=== PATIENT | male | born 1970 | race Two or more races ===

== ENCOUNTER 2025-02-03 06:33 | Inpatient (IN) | payer OTHER ==
[2025-02-03] VITALS (23 sets, daily range): BP systolic 97–154; BP diastolic 59–91; PULSE 54–86; RESP 12–20; TEMP 97.6–98.3; O2SAT 93–100
[~2025-02-03] VITALS: Ht 172.7 cm; Wt 86.3 kg
[2025-02-03] MEDS: ceFAZolin 2gm in dextrose, iso 50 ML IV ONE (05:30)
[2025-02-03] MEDS: tranexamic acid 1gm/0.7% sal. 100 ML IV ONE (05:30)
[~2025-02-03 06:33] MED LIST: UNABLE TO OBTAIN
[2025-02-03] MEDS ORDERED: SUMA50TA PO (07:01)
[2025-02-03] MEDS ORDERED: ACET325T55 PO (07:01)
[2025-02-03] MEDS ORDERED: DICLOFENAC 1% GEL TOP (07:01)
[2025-02-03] MEDS ORDERED: DULO-31 PO ×2 (07:01)
[2025-02-03] MEDS ORDERED: LIDOCAINE 4% TOP (07:01)
[2025-02-03] MEDS: famotidine 20mg tablet PO ONE (07:04)
[2025-02-03] MEDS ORDERED: METO50TA7 PO (07:05)
[2025-02-03] MEDS ORDERED: MAGN400T29 PO (07:05)
[2025-02-03] MEDS: ringers solution, lacted 1,000 ML IV SCH ×2 (07:05→14:08)
[2025-02-03] MEDS: VANCOMYCIN/H2O 1.5g/300mL PB 300 ML IV ONE (07:05)
[2025-02-03] MEDS ORDERED: vancomycin 1,000mg inj ONE (08:13)
[2025-02-03] MEDS ORDERED: sevoflurane 250ml liquid IH ONE (08:40)
[2025-02-03] MEDS ORDERED: fentaNYL/PF 50MCG/1 ML 2ML syringe ONE (08:43)
[2025-02-03] MEDS ORDERED: MIDAZolam 1 MG/ML 5ML VIAL ONE (08:43)
[2025-02-03] MEDS ORDERED: propofol inj 20 ML IV ONE (08:49)
[2025-02-03] MEDS ORDERED: LIDOcaine 1%/PF 5ML 10 MG/ML VIAL ONE (08:49)
[2025-02-03] MEDS ORDERED: dexamethasone sod phosphate 4mg/ml inj. ONE (09:31)
[2025-02-03] MEDS ORDERED: ROPIVAcaine 0.5% (5mg/ml) 30ml vial ONE (09:31)
[2025-02-03] MEDS ORDERED: rocuronium 10mg/ml inj IV ONE (09:31)
[2025-02-03] MEDS ORDERED: diphenhydrAMINE 50 mg/ml inj ONE (09:31)
[2025-02-03] MEDS ORDERED: ePHEDrine 50MG/ML INJ. ONE (09:39)
[2025-02-03] MEDS ORDERED: labetalol 20mg/4ml (5mg/ml) syringe IV PRN (10:40)
[2025-02-03] MEDS ORDERED: enalaprilat 1.25mg/ml 2ml vial IV PRN (10:40)
[2025-02-03] MEDS ORDERED: ROPIVAcaine 0.2% (10 MG/5 ML) BOLUS INJECTION INTERSCALE PRN (10:40)
[2025-02-03] MEDS ORDERED: morphine 4 MG/ML inj SYRINge IV PRN (10:40)
[2025-02-03] MEDS ORDERED: morphine 2 MG/ML inj. syringe IV PRN (10:40)
[2025-02-03] MEDS ORDERED: proCHLORperazine 10 MG/2 ml inj IV PRN (10:40)
[2025-02-03] MEDS ORDERED: ondansetron/PF 4mg/2ml inj IV PRN ×2 (10:40→12:35)
[2025-02-03] MEDS ORDERED: meperidine/PF 25mg/ml syringe IV PRN ×3 (10:40)
--- NOTE | 2025-02-03 10:41 | ANESTHESIA RECORDS ---
Nerve Block Providers to CC ~ Diagnosis: Nerve Block requested by: MERRITT VICTORIA MD Neuraxial/Peripheral Nerve Block requested for Post-operative analgesia by Physician above DIAGNOSIS: Post-operative pain. (Body Area) Shoulder: [ Right ] Arm: [ ] Hand: [ ] Hip: [ ] Knee: [ ] Ankle: [ ] Foot: [ ] Leg: [ ] Abdomen: [ ] Other: [ ] Post-operative pain expected to be/is inadequately managed by oral or IV medicines. Regional anesthetic expected to facilitate rehabilitation and/or discharge from facility. Other:[ ] Procedure Performed: Interscalene: Right Time out Done?: Yes Time of Time out: 08:47 Procedure Details: PROCEDURE DETAILS: Risks, benefits and alternatives explained Informed consent obtained, and patient wishes to proceed Conscious sedation with indicated monitors Patient positioned, pertinent anatomy defined, sterile technique used Needle used: [ ] 3 1/8 inch Stimuplex Ultra 22ga [ ] 4 inch Stimuplex Ultra 20ga [ ] 6 inch Stimuplex Ultra 20ga [ ] 6 inch, Quikbloc over the needle catheter set 20ga [ x] 4 inch Quikbloc over the needle catheter set 20ga [ ]Other: [ ] Loss of twitch @ [___0.5 ]mA [ ] Single Injection [x ] Catheter Ultrasound Guidance Used: [x ] Yes [ ] No Attempts:[ once ] Medicines injected: [ ]Clonidine Amt:[ ] [x ]Dexamethasone Amt:[____3 mgs ] [x ]Ropivacaine Amt:[ 0.5% 26 cc ] [ ]Bupivacaine Amt:[ ] [ ]Lidocaine Amt:[ ] [ ]Exparel 1.33%:[ ] [ ]Epinephrine Amt[ ] [ ]Other: [ ] Intermittent aspiration during local anesthetic administration No symptoms of intraneural or intravenous injection Patient tolerated procedure well Comments Right Interscalene Continuous Nerve block catheter: Pt turned to Left lateral position. Done under IV sedation. Easy visualization of the Brachial plexus with ultrasound probe. Chlorprep and sterile barrier applied. Posterior approach to the plexus. 1% xylocaine local anesthetic. OnQ # 16 4� QUIKBLOC over needle catheter advanced into the brachial plexus sheath, hydro dissection to see the tip of needle close to the plexus. Good twitch in forearm and disappears at 0. 4MV. 15 cc of local anesthetic injected slowly, visualizing the local anesthet ic spreading in the sheath. Needle taken out and catheter secured at the skin with tincture benzoin, steri strips and Tegaderm. Pt tolerated procedure well. 5 cc of local anesthetic injected through the catheter in divided doses. Will run continuous infusion through catheter postop. DARSHANA CLARK MD February 03, 2025 10:41
[2025-02-03] MEDS ORDERED: meperidine/PF 25mg/ml syringe ONE (11:31)
[2025-02-03] MEDS ORDERED: magnesium hydroxide 30ml (MOM) UD suspension PO PRN (12:35)
[2025-02-03] MEDS ORDERED: HYDROmorphone 1 mg/ml syringe IV PRN (12:35)
[2025-02-03] MEDS ORDERED: HYDROmorphone inj. 0.5 MG/0.5 ML DISP.SYRIN IV PRN (12:35)
[2025-02-03] MEDS ORDERED: oxyCODONE IR 5mg (immed. release) tablet PO PRN (12:35)
[2025-02-03] MEDS ORDERED: acetaminophen 325mg tablet PO PRN (12:35)
[2025-02-03] MEDS ORDERED: bisacodyl 10mg suppository rectal RC PRN (12:35)
[2025-02-03] MEDS ORDERED: naloxone 0.4 mg/ml inj IV PRN (12:35)
[2025-02-03] MEDS ORDERED: diphenhydrAMINE 25mg capsule PO PRN ×2 (12:35)
--- NOTE | 2025-02-03 12:52 | OPERATIVE REPORT ---
Operative Report Providers to CC ~ Date of Procedure: February 03, 2025 Pre-Operative Diagnosis: Degenerative joint disease right shoulder severe Post-Operative Diagnosis SAME as PRE-Op Procedure Performed see dictation # [id number] Surgeon: soraida victoria md Veterinary Manager none Anesthesiologist: Zuhair Jean Type of Anesthesia: General MERRITT VICTORIA MD February 03, 2025 12:52
[2025-02-03] MEDS: ROPIVAcaine 0.2%/PF PUMP/bolus 545 ML INTERSCALE SCH (12:56)
[2025-02-03] MEDS: potassium Cl 20mEq in NS 1,000 ML IV SCH (13:16)
--- NOTE | 2025-02-03 13:30 | RADIOLOGY REPORT ---
CLINICAL INDICATION: POST OP RIGHT SHOULDER TECHNIQUE: 1 radiographic views of the right shoulder were obtained. Comparison: None FINDINGS/IMPRESSION: There is no evidence of acute fracture or dislocation. Status post right shoulder arthroplasty.
[2025-02-03] MEDS: tranexamic acid inj. 860 MG in normal saline 100ml IV soln 91.4 ML IV ONE ×2 (13:49→14:47)
[2025-02-03] MEDS: gabapentin 300mg capsule PO SCH (13:55)
[2025-02-03] MEDS: acetaminophen 325mg tablet PO SCH (13:56)
[2025-02-03] MEDS: ceFAZolin/D5W- 1GM premix 50 ML IV SCH (15:33)
[2025-02-03] MEDS: sennosides 8.6mg tablet PO SCH (20:22)
[2025-02-03] MEDS: vancomycin/NS 1 GM ADD-VANTAGE 250 ML IV SCH (20:25)
--- NOTE | 2025-02-03 22:29 | CONSULTATION REPORT - RESIDENT ---
Consult Providers to CC Resident Creating Document: WOLF COMER NANCY History of Present Illness Reason for Admit\Complaint: Right shoulder arthroplasty History of Present Illness This 54-year-old male (from [facility]) admitted by Dr. Downey for right shoulder arthroplasty to treat severe degenerative joint disease. Patient comfortably resting in the bed with a brace around the shoulder. Getting pain medication. Denies any chest pain, shortness of breath, nausea or vomiting, abdominal pain constipation or diarrhea, dysuria or any other complaints. States that he takes pain medication for neuropathy and also for high blood pressure. Unsure about the medications. Allergies: Coded Allergies: No Known Allergies (Unverified , 02/02/25) Home Medications Home Medications Active Reported Toprol Xl* (Metoprolol Succinate) 50 Mg Tab.sr.24h 1 Tab PO DAILY Magox 400 (Magnesium Oxide) 400 Mg (241.3 Mg Magnesium) Tablet 1 Tab PO DAILY [Lidocaine 4% Film] TOP DAILY PRN [Diclofenac 1% Gel] 100 Gm TOP QID PRN PRN Acetaminophen 325 Mg Tablet 3 Tab PO BID PRN PRN Imitrex* (Sumatriptan Succinate) 50 Mg Tablet 1 Tab PO Q2H PRN give 1 tablet at onset of headache. May repeat in 2 hours as needed. Do not exceed 200mg/day total. Cymbalta* (Duloxetine HCl) 30 Mg Capsule. 1 Cap PO PM Cymbalta* (Duloxetine HCl) 30 Mg Capsule.dr 60 Mg PO DAILY Past Medical History Past Medical History Hypertension, neuropathy, right shoulder degenerative disease Past Surgical History Surgical History Comment Right shoulder arthroplasty Past Social History Social History Comment From [facility]. States that he quit smoking about 7-8 months back. Denied drinking alcohol or abusing any other recreational drugs. States that he has a remote history of IV heroin abuse ROS ROS Constitutional: No fever, chills, dizziness, weakness, weight gain or loss Eyes: No pain, erythema, discharge, blurring of vision ENT: No sore throat, epistaxis, tinnitus Cardiovascular: No chest pain, chest pressure, chest discomfort, palpitations, syncope, lower extremity edema, paroxysmal nocturnal dyspnea Respiratory: No shortness of breath, cough, hemoptysis Gastrointestinal: Normal appetite. No nausea, vomiting, diarrhea, constipation, hematemesis, abdominal pain, bloating, melena or fresh blood Genitourinary: No frequency, urgency, nocturia, hematuria or dysuria Musculoskeletal: Pain at the surgical site-right shoulder Integumentary: No change in skin, hair, nails. No swelling, bruising, abrasions Neurologic: No headache, neck pain, numbness or tingling of the extremities, weakness Psychiatric: No delusions, depression, loss of interest in normal activity or change in sleep pattern, hallucinations, suicidal ideations Endocrine: No fatigue, weakness, polydipsia, polyuria, change in appetite, heat or cold intolerance, sweating, dry skin Hematological: No bleeding, petechiae, bruising Allergies: No asthma or urticaria Exam Vitals: Vital Signs Date Time Temp Pulse Resp B/P (MAP) Pulse Ox O2 Delivery O2 Flow Rate FiO2 02/03/25 19:22 97.6 86 18 145/85 (105) 96 Room Air 02/03/25 15:06 0.0 General: Alert and oriented x4 HEENT: Normocephalic and atraumatic. Pupils equal round reactive to light and accommodation. Extraocular movements intact. Oral and nasal mucosa moist Neck: Trachea is in midline. No masses or JVD Chest: Bilateral normal breath sounds. No crackles, rhonchi or wheezes Cardiovascular: Regular rate and rhythm. S1-S2 normal. No rubs or murmurs Abdomen: Soft, nontender nondistended. Bowel sounds present Extremities: No cyanosis, clubbing or edema Central Nervous System: No gross sensory or motor deficits CN II XII intact Musculoskeletal: Dressing in place in the surgical site and wearing a brace. Skin: Warm and dry Diagnostic Data Last Recorded Lab Results: 02/03/[id number]/03/[id number] Additional Plan Right shoulder arthroplasty Pain medication management by the surgeon Per surgeon, Tudorza 1 g cefazolin IV and also vancomycin Received one dose of 860 mg tranexamic acid Hypertension Now, blood pressure 120/66 mmHg Continue home medication after med reconciliation No significant abnormalities in the lab work. Pending UA and urine tox # continue medication for neuropathy after med reconciliation # pending A1c and lipid panel Discharge planning as per the surgeon Wolf Comer MD Internal Medicine Resident, PGY 2 Date of Service: February 04, 2025 Billing Provider: EDGAR ESPINAL MD Common Visit Codes: [id number] INP/OBS CARE (HIGH) Assessment/Plan Assessment Status post shoulder arthroplasty on the right side seen for medical evaluation by the team. Has baseline hypertension but seems well-controlled Discussed the case with the resident. Reviewed her notes. Agree with her assessments and plans. I also reviewed the patient's records, labs, radiology, and notes from other providers. No additional points at this time. WOLF COMER RES February 03, 2025 22:29 EDGAR ESPINAL MD February 04, 2025 03:33
[2025-02-03 22:44] LABS: BASOPHILS % (AUTO) 0.1 % (0-1); EOSINOPHILS % (AUTO) 0 % (0-6); HEMATOCRIT 35.9 % (42.0-52.0); HEMOGLOBIN 12.1 g/dl (14.0-17.9); LYMPHOCYTES % (AUTO) 10.7 % (21-51); MEAN CORPUSCULAR HEMOGLOBIN 30.9 PG (27.0-31.0); MEAN CORPUSCULAR HGB CONC 33.7 g/dL (33.0-36.5); MEAN CORPUSCULAR VOLUME 91.7 FL (78-98); MEAN PLATELET VOLUME 8.3 FL (7.4-10.4); MONOCYTES # (AUTO) 0.3 X10'3 (0-0.9); MONOCYTES % (AUTO) 3.2 % (2-12); NEUTROPHILS # (AUTO) 8.4 X10'3 (1.8-7.7); PLATELET COUNT 264 X10'3 (140-440); RED BLOOD COUNT 3.92 X10'6 (4.70-6.10); WHITE BLOOD COUNT 9.8 X10'3 (4.5-11.0)
[2025-02-03 22:54] LABS: APTT 25 SECONDS (22-32); INR 1.2 INR; PROTHROMBIN TIME 12.3 SECONDS (9.0-12.0)
[2025-02-03 22:57] LABS: ALANINE AMINOTRANSFERASE 20 U/L (12-78); ALBUMIN 3.1 G/DL (3.4-5.0); ALBUMIN/GLOBULIN RATIO 1.1 (1.1-1.5); ALKALINE PHOSPHATASE 69 IU/L (46-116); ANION GAP 8 (8-16); ASPARTATE AMINO TRANSFERASE 25 U/L (10-37); BILIRUBIN,TOTAL 0.4 MG/DL (0.1-1.0); BLOOD UREA NITROGEN 14 MG/DL (7-18); CALCIUM 8.3 MG/DL (8.5-10.1); CHLORIDE 108 MMOL/L (99-107); GLUCOSE 152 MG/DL (70-104); POTASSIUM 4.3 MMOL/L (3.5-5.1); SODIUM 140 MMOL/L (135-145); TOTAL CARBON DIOXIDE 24.2 MMOL/L (24-32); TOTAL PROTEIN 5.8 G/DL (6.4-8.2); eCRCL 83 ML/MIN; eGFR 78 ML/MIN
--- NOTE | 2025-02-04 01:30 | OPERATIVE REPORT ---
DATE OF SURGERY: 02/03/2025 DICTATING PHYSICIAN: Holden Downey MD PREOPERATIVE DIAGNOSIS: Degenerative joint disease, severe right shoulder. POSTOPERATIVE DIAGNOSIS: Degenerative joint disease, severe right shoulder. PROCEDURE PERFORMED: Right total shoulder arthroplasty anatomic. SURGEON: Holden Downey MD C.O.D. CLERK: No temporary administrative assistant. ANESTHESIA: General anesthesia with a supraclavicular On-Q regional block. ANESTHESIOLOGIST: Dr. Jean. BLOOD LOSS: Less than 100 mL. INDICATIONS AND TECHNIQUE: A 54-year-old patient/inmate who is having progressive pain and stiffness involving his right shoulder. Workup and exam were consistent with severe degenerative joint disease grade 4,of the right shoulder with loss of joint space and marked limitations in range of motion, operational rotator cuff function. The patient opted for a total shoulder arthroplasty anatomic. He understood the indications, risks, benefits, complications, and limitations of this procedure. I obtained informed consent and signed his right shoulder. He was given prophylactic antibiotics, taken to the operating room and given a general anesthetic, placed in a supine semi-sitting beach chair position, was given a supraclavicular block with On-Q pump placement before the shoulder was prepped and draped in the usual sterile orthopedic fashion. Once this was accomplished, surgical timeout was taken per protocol and the case was begun. A Spider shoulder and arm muse was used during this case. A standard deltopectoral approach was performed measuring approximately 6-7 inches. Dissection and visualization of the cephalic vein was accomplished and retracted laterally. A conjoined tendon was visualized and retracted medially with a self-retaining retractor with the deltoid being retracted laterally to expose the clavipectoral fascia, which was released to expose the subscapularis tendon and capsule of the proximal shoulder and glenohumeral joint. Release of the subscapularis 1-cm medial to its attachment site was accomplished and stay sutures were placed in this tendon to reattach it at the close of the case. The shoulder was now dislocated with extension and external rotation without difficulty. The humeral head was resected at the surgical neck with a 30-degree retroversion cut removing approximately 17-mm thickness of bone. The humeral head diameter measured 44 mm. Surrounding osteophytes of the neck were removed without difficulty and the proximal humerus was prepared for the press-fit implant with a size 0 short head stem 28 x 6 mm. This fit quite nicely with excellent bone quality. A protective plate was screwed into the temporary proximal humerus stem to protect this while we moved to replace the glenoid. Shoulder was retracted posteriorly to the glenoid with a Fukuda retractor and an anterior retractor was used. Redundant labrum was excised and used a glenoid insert that was 22 x 6 mm thick. This was countersunk to 2 mm with a reamer over the top of the guide pin. PEG drill holes were also made and a trial reduction with a glenoid trial fit nicely and restored his glenoid anatomy. This definitive implant was cemented into place and allowed this to cure for 15 minutes while under irrigation with normal saline and antibiotic impregnated in Irrisept antiseptic solution. Pulsatile irrigation of approximately 3 liters was used throughout the case. Hemostasis was achieved with electrocautery. Once the glenoid was completed, then the shoulder was brought back to visualize the proximal humerus and a definitive short stem was impacted into place with the 17 x 44 mm humeral head attached after trial reductions confirmed that this allowed for only 50% translation of the humerus and the glenoid but achieving excellent range of motion. This was impacted into place and found to be very stable. The shoulder was reduced and again found to be stable and reattachment of the subscapularis to the proximal humerus was accomplished with a running locking suture of #2 FiberWire. No drains were required as the hemostasis was excellent. Closure of the subcutaneous tissue was accomplished with 2-0 Vicryl. The skin was closed with skin shirin. Sterile dressings were applied. A shoulder immobilizer was applied. The patient was now extubated and taken to the recovery room in stable condition. There were no apparent perioperative complications. Holden Downey MD TID: [id number] RECEIPT: [id number] HIPOLITO/MADI
[2025-02-04 02:00] VITALS: BP 113/65; PULSE 70; RESP 15; TEMP 98.3; O2SAT 93
[2025-02-04 04:52] LABS: BASOPHILS % (AUTO) 0.3 % (0-1); EOSINOPHILS % (AUTO) 0 % (0-6); HEMATOCRIT 35.7 % (42.0-52.0); HEMOGLOBIN 11.8 g/dl (14.0-17.9); LYMPHOCYTES # (AUTO) 1.4 X10'3 (1.1-4.8); LYMPHOCYTES % (AUTO) 11.1 % (21-51); MEAN CORPUSCULAR HEMOGLOBIN 30.5 PG (27.0-31.0); MEAN CORPUSCULAR VOLUME 92.5 FL (78-98); MEAN PLATELET VOLUME 8.3 FL (7.4-10.4); MONOCYTES # (AUTO) 0.7 X10'3 (0-0.9); MONOCYTES % (AUTO) 5.5 % (2-12); NEUTROPHILS # (AUTO) 10.5 X10'3 (1.8-7.7); NEUTROPHILS % (AUTO) 83.1 % (42-75); PLATELET COUNT 244 X10'3 (140-440); RED BLOOD COUNT 3.86 X10'6 (4.70-6.10); RED CELL DISTRIBUTION WIDTH 13.1 % (11.5-14.5); WHITE BLOOD COUNT 12.6 X10'3 (4.5-11.0)
[2025-02-04 05:17] LABS: ALANINE AMINOTRANSFERASE 31 U/L (12-78); ALKALINE PHOSPHATASE 67 IU/L (46-116); ANION GAP 8 (8-16); ASPARTATE AMINO TRANSFERASE 24 U/L (10-37); BILIRUBIN,TOTAL 0.4 MG/DL (0.1-1.0); BLOOD UREA NITROGEN 15 MG/DL (7-18); BUN/CREATININE RATIO 17.2 (10.0-20.0); CALCIUM 8.4 MG/DL (8.5-10.1); CHLORIDE 109 MMOL/L (99-107); CHOL/HDL RATIO 2.3 (0.00-4.99); CHOLESTEROL 167 MG/DL (0-200); CREATININE 0.87 MG/DL (0.60-1.10); GLUCOSE 131 MG/DL (70-104); HDL CHOLESTEROL 72 MG/DL (35-60); LDL CHOLESTEROL 84 MG/DL (50-100); POTASSIUM 4.3 MMOL/L (3.5-5.1); SODIUM 141 MMOL/L (135-145); TOTAL CARBON DIOXIDE 23.8 MMOL/L (24-32); TOTAL PROTEIN 5.9 G/DL (6.4-8.2); TRIGLYCERIDES 64 MG/DL (20-135); eCRCL 95 ML/MIN; eGFR > 90 ML/MIN
[2025-02-04 06:00] VITALS: BP 122/67; PULSE 62; RESP 17; TEMP 97.9
[2025-02-04 06:19] LABS: HEMOGLOBIN A1C 5.6 % (4.5-6.2)
[2025-02-04 08:00] VITALS: RESP 16; O2SAT 98
[2025-02-04] MEDS: enoxaparin 40mg/0.4ml syringe SQ SCH (08:52)
[2025-02-04 10:00] VITALS: BP 121/65; PULSE 70; RESP 19; TEMP 98; O2SAT 96
[2025-02-04 16:28] VITALS: RESP 16
[2025-02-04] MEDS: oxyCODONE IR 5mg (immed. release) tablet PO PRN (16:28)
[2025-02-04] MEDS ORDERED: celeCOXIB 100mg capsule PO SCH (20:00)
--- NOTE | 2025-02-06 08:36 | DISCHARGE SUMMARY ---
Discharge Summary Providers to CC ~ Discharge Summary Admission Diagnosis: Degenerative joint disease right shoulder severe Hospital Course DATE OF ADMISSION: February 03, 2025 DATE OF DISCHARGE: February 04, 2025 Discharge Diagnosis\Comment: Status post right total shoulder arthroplasty with Dr. Downey History of high blood pressure Operations\Procedures: Right total shoulder arthroplasty Consultants: Dr. Downey Complications: None Condition on DC: Stable Discharge Summary: This is a 54 years old male from [facility] who was admitted by Dr. Downey for right shoulder arthroplasty due for treatment for severe degenerative shoulder disease; there were no complications after surgery pain has been controlled [facility] surgeon cleared the patient for discharge and patient was discharged back to assisted Patient is to resume his meds including Cymbalta 60 mg daily 30 mg at bedtime magnesium oxide 400 mg daily Toprol-XL 50 mg daily and Imitrex p.r.n. Blood work on discharge white count 12.6 H and H 11.8/35 with 244 platelets; sodium 141 potassium 4.3 CO2 23 BUN 15 creatinine 0.8 On discharge physical exam temperature 98� heart rate 70 breathing 18 blood pressure 121/65 96% on room air HEENT normal oral mucosa no JVD lungs with normal bilateral entry no crackles no wheezing heart normal rate and rhythm S1- S2 no murmurs abdomen is soft nontender bowel sounds are present extremities no edema plus two pulses he is awake and alert right arm in a sling *Problems/Diagnosis: (1) Degenerative joint disease, shoulder, right Total Time Spent on D/C: > 30 Minutes Date of Service: February 04, 2025 Billing Provider: SALLIE BRADFORD MD Common Visit Codes: 58695-SFV/OBS DISCH DAY >30min SALLIE BRADFORD MD February 06, 2025 08:35
== END 2025-02-04 17:30 | DRG 483 ==
LOC: PAS IN 06:33 → EEVIPCON 09:00 → SUR 3N 13:31
PROVIDERS: ADMIT Orthopaedic Surgery; ATTEND Orthopaedic Surgery
PROC: 0JH80VZ Insertion of Infusion Pump into Abdomen Subcutaneous Tissue and Fascia, Open Approach (ICD-10-PCS; 2025-02-03)
PROC: 3E013BZ Introduction of Anesthetic Agent into Subcutaneous Tissue, Percutaneous Approach (ICD-10-PCS; 2025-02-03)
PROC: 0RRJ0JZ Replacement of Right Shoulder Joint with Synthetic Substitute, Open Approach (ICD-10-PCS; principal; 2025-02-03 08:40)
DX: M19.011 Primary osteoarthritis, right shoulder (principal); I10 Essential (primary) hypertension; G62.9 Polyneuropathy, unspecified; Z79.899 Other long term (current) drug therapy
CPT/HCPCS: Z7506; Z7508; 36415; 73020; 80053; 80061; 82948; 83036; 85025; 85610; 85730; 87081; 97110; 97116; 97162; A4565; A4618; A6455; A7000; C1713; C1776; C9250; G0378; J0690; J1100; J1200; J1650; J2175; J2250; J2405; J2704; J2710; J2795; J3010; J3370; J3372; J3480; J3490; J7120